=== PATIENT | male | born 1960 | race Caucasian/White ===

== ENCOUNTER 2018-06-09 18:40 | Emergency (ER) | payer BC ==
[2018-06-09] MEDS ORDERED: Fluorescein 0.6 MG Ophth Strip ONE (19:25)
[2018-06-09] MEDS ORDERED: Fluorescein 0.6 MG Ophth Strip EYERT ONE (19:28)
[2018-06-09] MEDS ORDERED: Erythromycin Base 0.5% Ophth Oint 1 GM Tube EYERT ONE (19:40)
--- NOTE | 2018-06-09 19:57 | EDM.PDOC ---
ED HPI GENERAL MEDICAL PROBLEM - General Chief Complaint: Eye Problems Stated Complaint: RIGHT EYE PAIN SENSATIVE TO LIGHT SOMETHING IN IT Time Seen by Provider: 06/09/18 19:05 Source of Information: Reports: Patient History Limitations: Reports: No Limitations - History of Present Illness INITIAL COMMENTS - FREE TEXT/NARRATIVE: This is a 58-year-old male. Apparently 3 days ago he was crawling underneath a vehicle and he got something in his right eye. He has been bothering him and becoming more sensitive to light and he finally comes to the ER this evening. He states that he has to wear sunglasses now because even just going out into the bright sunlight with the snow causes pain in his right eye. In the dark he is able to see fairly well and he denies any other acute symptoms. Apparently he had a friend who looked in the eye but couldn't see anything or find any sign but continued to irritate him so he comes to the ER. He denies any other acute symptoms. Right Eye Pain Score (Numeric/FACES): 2 - Related Data Allergies Allergy/AdvReac Type Severity Reaction Status Date / Time No Known Allergies Allergy Verified 06/09/18 19:08 Home Meds: Home Meds . [No Known Home Meds] 06/09/18 [History] Past Medical History - Past Health History Medical/Surgical History: Denies Medical/Surgical History Social & Family History - Tobacco Use Smoking Status *Q: Never Smoker - Caffeine Use Caffeine Use: Reports: Coffee - Recreational Drug Use Recreational Drug Use: No ED ROS GENERAL - Review of Systems Review Of Systems: See Below Constitutional: Denies: Fever, Chills HEENT: Reports: Eye Pain. Denies: Eye Discharge Respiratory: Reports: No Symptoms Cardiovascular: Reports: No Symptoms Endocrine: Reports: No Symptoms GI/Abdominal: Reports: No Symptoms : Reports: No Symptoms Musculoskeletal: Reports: No Symptoms Skin: Reports: No Symptoms Neurological: Reports: No Symptoms Psychiatric: Reports: No Symptoms Hematologic/Lymphatic: Reports: No Symptoms ED EXAM GENERAL W FULL EYE - Physical Exam Exam: See Below Exam Limited By: No Limitations General Appearance: Alert, WD/WN, No Apparent Distress Eye Exam: Bilateral Eye: Other (His right eye is slightly inflamed with an ophthalmoscope I can see a foreign body stuck on the almost central area of the cornea on the right eye) Visual Acuity (R) 20/: 20 Visual Acuity (L) 20/: 70 With Correction: No Eyelids: Bilateral: Normal Appearance Conjunctiva & Sclera: Right: Injected Cornea Exam: Right: Foreign Body, Examined with Flourescein (Floor seen stain after I removed the foreign body shows no abrasion) Pupils: Normal Accommodation Pupillary Reaction: Right: Brisk Anterior Chamber: Right: Normal Appearance Comments: I numbed the eye with proparacaine and used a Q-tip to brush across the foreign body and I was able to dislodge it and get it out but I think he has a remaining rust stain in that area. Ears: Normal External Exam Nose: Normal Inspection Throat/Mouth: Normal Inspection Head: Normocephalic Neck: Supple Respiratory/Chest: No Respiratory Distress GI/Abdominal: Soft Back Exam: Full Range of Motion Extremities: Normal Inspection, Normal Range of Motion Neurological: Alert, Oriented Psychiatric: Normal Affect, Normal Mood Skin Exam: Warm, Dry Course - Vital Signs Last Recorded V/S: Last Vital Signs Temp 97.6 F 06/09/18 19:06 Pulse 70 06/09/18 19:06 Resp 18 06/09/18 19:06 BP 128/80 06/09/18 19:06 Pulse Ox 96 06/09/18 19:06 - Orders/Labs/Meds Meds: Medications Discontinued Medications Generic Name Dose Route Start Last Admin Trade Name Cuate PRN Reason Stop Dose Admin Erythromycin 1 gm 06/09/18 19:40 06/09/18 19:44 Erythromycin 0.5% Ophth Oint EYERT 06/09/18 19:41 1 applic ONETIME ONE Administration Fluorescein Sodium Confirm 06/09/18 19:25 06/09/18 19:45 Ful-Nat Administered 06/09/18 19:26 Not Given Dose 1.2 mg .ROUTE .STK-MED ONE Fluorescein Sodium 1.2 mg 06/09/18 19:28 06/09/18 19:45 Ful-Nat EYERT 06/09/18 19:29 1.2 mg ONETIME ONE Administration - Re-Assessments/Exams Free Text/Narrative Re-Assessment/Exam: 06/09/18 20:29 I spoke to the patient about going to see an eye physician by Monday if this irritation in his right eye continues. I believe he had a small speck of metal and on the cornea of the right eye and he has a small rust stain remaining. If the eye continues to bother him he'll need to have that cornea polished. Departure - Departure Time of Disposition: 19:54 Disposition: Home, Self-Care 01 Condition: Good Clinical Impression: Corneal abrasion, right Qualifiers: Encounter type: initial encounter Qualified Code(s): S05.01XA - Injury of conjunctiva and corneal abrasion without foreign body, right eye, initial encounter Foreign body of right cornea Qualifiers: Encounter type: initial encounter Qualified Code(s): T15.01XA - Foreign body in cornea, right eye, initial encounter - Discharge Information Instructions: Eye Foreign Body, [id number] Referrals: PCP,Not In Area [Primary Care Provider] - Forms: ED Department Discharge Additional Instructions: Wear the eye patch overnight and you may take it off in the morning but there will still be some irritation and probably sensitivity to the light, get some artificial tears from [employer] and use them for the irritation of your eye, if it does not clear up by Monday you need to see an eye doctor for reevaluation and possibly a polishing of the cornea were you had that small speck of metal, return to the ER if needed
== END 2018-06-09 20:20 | disposition home or self-care (01) ==
LOC: JD.ED 18:40
DX: T15.01XA Foreign body in cornea, right eye, initial encounter (principal); X58.XXXA Exposure to other specified factors, initial encounter
CPT/HCPCS: 65220; 99283; A9270; 65205